=== PATIENT | female | born 1990 | race African-American/Black ===

== ENCOUNTER 2017-02-06 15:33 | Emergency (ER) | payer OTHER ==
[~2017-02-06] VITALS: Ht 165.1 cm; Wt 104.3 kg
[2017-02-06 16:01] VITALS: BP 134/96
== END 2017-02-06 16:51 | disposition home or self-care (01) ==
LOC: ER 15:40
DX: J02.9 Acute pharyngitis, unspecified (principal); J01.10 Acute frontal sinusitis, unspecified; F17.210 Nicotine dependence, cigarettes, uncomplicated

== ENCOUNTER 2017-02-24 20:15 | Emergency (ER) | payer OTHER ==
[~2017-02-24] VITALS: Ht 165.1 cm; Wt 99.8 kg
[2017-02-24 23:50] VITALS: BP 134/86
== END 2017-02-25 00:21 | disposition home or self-care (01) ==
LOC: ER 20:21
DX: J02.9 Acute pharyngitis, unspecified (principal); F17.210 Nicotine dependence, cigarettes, uncomplicated; F15.10 Other stimulant abuse, uncomplicated; F20.9 Schizophrenia, unspecified; F31.9 Bipolar disorder, unspecified

== ENCOUNTER 2018-02-05 18:31 | Emergency (ER) | payer MEDICAID, OTHER ==
[~2018-02-05] VITALS: Ht 165.1 cm; Wt 99.8 kg
[2018-02-05 19:02] VITALS: BP 156/80
== END 2018-02-05 21:14 | disposition home or self-care (01) ==
LOC: ER 18:31
DX: K08.89 Other specified disorders of teeth and supporting structures (principal); G89.29 Other chronic pain; I10 Essential (primary) hypertension; F17.210 Nicotine dependence, cigarettes, uncomplicated

== ENCOUNTER 2018-07-31 13:10 | Emergency (ER) | payer MEDICAID ==
[~2018-07-31] VITALS: Ht 165.1 cm; Wt 117.9 kg
[2018-07-31 13:22] VITALS: BP 152/99
== END 2018-07-31 13:44 | disposition home or self-care (01) ==
LOC: ER 13:13
DX: J45.909 Unspecified asthma, uncomplicated (principal); I10 Essential (primary) hypertension; F17.210 Nicotine dependence, cigarettes, uncomplicated; Z76.0 Encounter for issue of repeat prescription

== ENCOUNTER 2018-10-06 10:14 | Emergency (ER) | payer MEDICAID, OTHER ==
[~2018-10-06] VITALS: Ht 165.1 cm; Wt 112.0 kg
[2018-10-06 10:43] VITALS: BP 114/96
== END 2018-10-06 12:33 | disposition home or self-care (01) ==
LOC: ER 10:14
DX: K04.7 Periapical abscess without sinus (principal); J45.909 Unspecified asthma, uncomplicated; I10 Essential (primary) hypertension; F31.9 Bipolar disorder, unspecified; F17.210 Nicotine dependence, cigarettes, uncomplicated; Z76.0 Encounter for issue of repeat prescription

== ENCOUNTER 2019-01-03 11:53 | Emergency (ER) | payer OTHER ==
[~2019-01-03] VITALS: Ht 165.1 cm; Wt 108.9 kg
[2019-01-03 11:58] VITALS: BP 108/67
== END 2019-01-03 13:02 | disposition home or self-care (01) ==
LOC: ER 11:53
DX: K04.7 Periapical abscess without sinus (principal); J45.909 Unspecified asthma, uncomplicated; I10 Essential (primary) hypertension; F17.210 Nicotine dependence, cigarettes, uncomplicated; Z76.0 Encounter for issue of repeat prescription

== ENCOUNTER 2019-04-11 08:45 | Emergency (ER) | payer MEDICAID, OTHER ==
[~2019-04-11] VITALS: Ht 165.1 cm; Wt 122.5 kg
[2019-04-11 09:07] VITALS: BP 120/74
[2019-04-11] MEDS ORDERED: NAPROXEN 500 MG TAB PO ONE (09:30)
[2019-04-11] MEDS ORDERED: ONDANSETRON ODT 4 MG TAB PO ONE (10:00)
== END 2019-04-11 10:05 | disposition home or self-care (01) ==
LOC: ER 08:45
DX: M62.830 Muscle spasm of back (principal); M54.5 Low back pain; J45.909 Unspecified asthma, uncomplicated; I10 Essential (primary) hypertension; F20.9 Schizophrenia, unspecified; Z76.0 Encounter for issue of repeat prescription
CPT/HCPCS: 81002; 81025; 93005

== ENCOUNTER 2019-06-29 10:27 | Emergency (ER) | payer OTHER ==
[~2019-06-29] VITALS: Ht 165.1 cm; Wt 121.3 kg
[2019-06-29 11:29] VITALS: BP 145/78
== END 2019-06-29 11:57 | disposition home or self-care (01) ==
LOC: ER 10:27
DX: K04.7 Periapical abscess without sinus (principal); I10 Essential (primary) hypertension; J45.909 Unspecified asthma, uncomplicated; F17.210 Nicotine dependence, cigarettes, uncomplicated; Z76.0 Encounter for issue of repeat prescription

== ENCOUNTER 2020-02-12 08:33 | Emergency (ER) | payer OTHER ==
[~2020-02-12] VITALS: Ht 165.1 cm; Wt 130.6 kg
[2020-02-12 08:53] VITALS: BP 113/91
[2020-02-12] MEDS ORDERED: IPRATROPIUM BROM 0.5 MG/2.5ML INH SOL NEB ONE (09:00)
[2020-02-12] MEDS ORDERED: ALBUTEROL SULF 2.5 MG/0.5ML(0.5%) NEB SOLN NEB ONE (09:00)
[2020-02-12] MEDS ORDERED: LORazepam 2MG/ML-1ML VIAL IM ONE (09:00)
== END 2020-02-12 10:00 | disposition home or self-care (01) ==
LOC: ER 08:33
DX: J45.901 Unspecified asthma with (acute) exacerbation (principal); F41.1 Generalized anxiety disorder; K04.7 Periapical abscess without sinus; I10 Essential (primary) hypertension; F17.210 Nicotine dependence, cigarettes, uncomplicated; Z76.0 Encounter for issue of repeat prescription
CPT/HCPCS: 94640; 99283; J2060; J7644